=== PATIENT | female | born 1965 | race Caucasian/White ===

== ENCOUNTER → 2023-08-19 08:26 | Outpatient (REF) | payer OTHER, SELFPAY | LOC: HWRAD 08:26 | PROVIDERS: ATTENDING PHYSICIAN Family Medicine | DX: R74.8 Abnormal levels of other serum enzymes (principal) | CPT/HCPCS: 76700 ==

== ENCOUNTER 2024-10-27 20:13 | Emergency (ER) | payer OTHER, SELFPAY ==
[2024-10-27 20:22] VITALS: BP 168/91
[2024-10-27 20:36] LABS: % Basophils 0.6 % (0-2); % Eosinophils 2.8 % (0-6); % Immature Granulocytes 0.2 % (0-0.5); % Lymphocytes 28.8 % (20.5-51.1); % Monocytes 6.9 % (1.7-9.3); % Neutrophils 60.7 % (42.2-75.2); Absolute Eosinophils 0.2 10^3/uL (0-0.7); Absolute Lymphocytes 1.9 10^3/uL (1.2-3.4); Absolute Monocytes 0.4 10^3/uL (0.1-0.6); Absolute Neutrophils 3.9 10^3/uL (1.4-6.5); Hematocrit 41.9 % (37.0-47.0); Hemoglobin 14.8 g/dL (12.0-16.0); Mean Corp Hgb Conc. 35.3 g/dL (33.0-37.0); Mean Corpuscular Hgb 33.6 pg (27.0-31.0); Nucleated Red Blood Cells % 0 %; Platelet Count 182 10^3/uL (130-400); Red Blood Cell Count 4.41 10^6/uL (4.20-5.40); Red Cell Dist. Width 14.3 % (11.5-14.5); White Blood Cell Count 6.4 10^3/uL (4.8-10.8)
[2024-10-27 21:07] LABS: ALT (SGPT) 61 U/L (0-35); AST (SGOT) 54 U/L (14-36); Albumin 4.8 g/dl (3.5-5.0); Alkaline Phosphatase 201 U/L (38-126); Blood Urea Nitrogen 16 mg/dl (7-17); Calcium 10.1 mg/dl (8.4-10.2); Carbon Dioxide 27 mmol/L (22-30); Chloride 108 mmol/L (98-107); Glucose 141 mg/dl (70-99); Potassium 3.9 mmol/L (3.5-5.1); Sodium 142 mmol/L (135-145); Total Bilirubin 0.7 mg/dl (0.2-1.3); Total Protein 7.6 g/dl (6.3-8.2); eGFR > 60.00
[2024-10-27 21:19] LABS: Troponin I < 0.012 ng/ml
[2024-10-27 21:42] VITALS: BP 150/77; BMI 36.7
[2024-10-27 22:42] VITALS: BP 139/64
--- NOTE | 2024-10-27 23:20 | ED.GENMED ---
History of Present Illness
General
Chief Complaint: Cardiac Symptoms
Source: patient and previous hospital records (Cardiac catheterization November 2022-PTCA with stent to the right coronary artery for 95% stenosis midportion. Also note of moderate CAD of the LAD and circumflex.)
Exam Limitations: none
Time Seen by Provider: 10/27/24 22:20
Nursing documentation reviewed up to this point in time: agreed with
History of Present Illness
History of Present Illness:
This is a 59-year-old woman who has history of hypertension, hyperlipidemia, GERD, irritable bowel syndrome, left bundle branch block as well as CAD with history of PTCA with stent to the RCA November 2022. She follows with Dr. Licona. She does note
that her blood pressure has been more elevated recently running 137-145/80.
Tonight she awoke on the couch after a brief nap and was chatting with her daughter on the phone. Shortly after the call ended patient developed a very sharp moderate to severe lower substernal chest pain that was nonradiating, associated with mild
nausea and lasted approximately 30 seconds and then resolved. She remained chest pain-free since then. She denies back pain, no other associated symptoms.
She admits that this episode of chest pain was quite different from the chest pain she experienced prior to PTCA in 2022, at that time patient had been experiencing exertional chest pain associated with fatigue.
She continues to exercise several times per week without symptomatology.
Her daily medications include: Omeprazole, amlodipine, Claritin in the a.m., atorvastatin, metoprolol, Zyrtec, Xanax in the evening.
Past History
Past History
ED Past Medical History: CAD, GERD, HTN, Hypercholesterolemia and Other (Chronic left bundle branch block); Negative IDDM or NIDDM
ED Past Surgical History: Cardiac (PTCA with stent to the RCA November 2022), Gynecological and Tonsilectomy
Social History
Tobacco: Non-smoker
Alcohol: Occasional
Drug: None
Personal:
Living: with family
Employment: Employed
Family History
Family History: Other (Dad and sister with rheumatoid arthritis father with diabetes and bilateral carotid endarterectomies)
Phy Exam
Physical Exam
Physical Exam:
GENERAL: 59-year-old woman appears her stated age, bright and alert, pleasant, appears in no acute distress. is accompanying.
EYE: anicteric
NECK: Supple, nontender, no meningismus, no significant adenopathy.
ENT: oral mucosa is moist. No rhinorrhea.
CARDIAC: Regular rate and rhythm. no murmur. No palpable chest wall tenderness.
LUNGS: Clear breath sounds bilaterally, no acute respiratory distress, no wheezes/rales/rhonchi
ABDOMEN: Rotund, soft, nondistended, very minimal tenderness epigastric region with deep palpation only, no r/g, no cvat. normoactive BS.
NEUROLOGICAL: Alert and oriented x3, no focal neuro deficits.
SKIN: Warm and dry, normal color, skin intact. No rash.
MUSCULOSKELETAL: No C/C/E. peripheral pulses are full and equal b/l. No palpable tenderness.
PSYCH: Normal and appropriate interaction.
Scores
Heart Score for Chest Pain Patients
STEMI patient?: No
History: Slightly or Non-Suspicious
ECG: Normal
Age: >45 - <65 years
Risk Factors: >/= 3 Risk Factors or History of CAD
Troponin: </= Normal Limit
Heart Score for Chest Pain Patients: 3
Heart Score Risk: 2.5% MACE over next 6 weeks
Course
Orders/Labs/Results
Orders:
Orders
10/27/24 20:14
ECG [Electrocardiogram (*1)] Urgent
Reason for Study: Chest Pain
EKG- Treatment ONCE
10/27/24 20:24
Cardiac Monitoring- Treatment ONCE
IV Insert/Care/Rem.- Treatment PRN
O2 Therapy [RESP] Urgent
Titrate/Wean O2 to maintain O2 sat greater than (%): 90
Special Instructions: Maintain sats >/=90%
Pulse Ox/spot Check [RESP] Urgent
Quantity: 1
Special Instructions: ON ROOM AIR
10/27/24 20:30
Complete Blood Count/With Diff Urgent
Comprehensive Metabolic Panel Urgent
Troponin I Urgent
10/27/24 22:42
Troponin I Urgent
Abnormal Lab Results
10/27/24
20:30
MCH 33.6 H pg
(27.0-31.0)
MPV 11.0 H fL
(7.4-10.4)
Chloride 108 H mmol/L
(98-107)
Glucose 141 H mg/dl
(70-99)
AST 54 H U/L
(14-36)
ALT 61 H U/L
(0-35)
Alkaline Phosphatase 201 H U/L
(38-126)
10/27/24 20:30
10/27/24 20:30
Vital Signs
Initial and Last Documented VS:
Initial Vital Signs
Temp Pulse Resp BP Pulse Ox
97.6 F 84 19 168/91 97
10/27/24 20:22 10/27/24 20:22 10/27/24 20:22 10/27/24 20:22 10/27/24 20:22
Last Documented Vital Signs
Temp Pulse Resp BP Pulse Ox
97.6 F 72 16 139/64 98
10/27/24 20:22 10/27/24 22:42 10/27/24 22:42 10/27/24 22:42 10/27/24 22:42
MDM/Problems Addressed
Differential Diagnosis Includes:
Fleeting sharp lower substernal chest pain lasting 30 seconds associated with mild nausea without return is overall not consistent with ACS/angina. I suspect an element of GERD, other consideration could be biliary colic however less likely due to
brevity of discomfort.
She remains hemodynamically stable, no associated back pain and again with brevity of discomfort, dissection is unlikely as well.
EKG shows normal sinus rhythm, left bundle branch block, similar and unchanged from previous.
Labs thus far show mildly elevated LFTs but overall similar and unchanged from previous. Troponin is negative.
Will plan to repeat troponin now.
Initial BP elevated at 168/90, has improved to 139/64 without intervention.
Chronic conditions affecting care: HTN, CAD and Other (GERD, hyperlipidemia)
*Pulse Oximetry
Patient hypoxic: no
*EKG
Interpreted by ED Provider?: Yes
Comparison EKG: no changes (Unchanged from previous 2022)
Rate: normal
Rhythm: sinus
[place]: left axis deviation
Interval: normal QT interval and normal CT interval
QRS Pattern: left bundle branch block
Ischemia: no ischemia
*Ice Cream Chef Interpretation
Rate: normal
Interpretation: normal
Rhythm: sinus
*Critical Care Note
Total Time (30-74mins, 75-104mins- exclusive of procedures): Not Applicable
Update Note
Update Note:
23:35
Repeat troponin remains negative.
Patient remains chest pain-free and comfortable.
With repeat ported to home blood pressure somewhat elevated high 130s to 140s systolic recommend increasing metoprolol succinate from 25 to 50 mg daily. Continue amlodipine 5 mg daily.
Continue to monitor blood pressure at home with plan for prompt follow-up with lead game designer, Dr. Licona as well as follow-up with PCP.
Return precautions discussed.
ED Attending Note
-
Portions of this chart may have been created with voice recognition software.� Occasional wrong word or��sound alike� substitutions may have occurred due to the inherent limitations of voice recognition software.
Discharge Plan
Departure
Patient Disposition: Home (Routine Discharge)
Date of Disposition: 10/27/24
Time of Disposition: 23:41
Patient with high blood pressure during this ER visit?: No
Condition: Good
Discharge Problem:
Nonspecific chest pain, Essential hypertension
Instructions: Low-sodium diet, Chest Pain DCA Follow Up
Prescriptions:
New
metoprolol succinate 50 mg tablet extended release 24 hr
50 mg PO DAILY Qty: 60 0RF
No Action
ibuprofen 600 MG tablet
600 mg PO Q6HPRN PRN (Reason: pain)
Multivitamin
1 tab PO HS
metoprolol succinate [Toprol XL] 25 mg tablet extended release 24 hr
12.5 mg PO DAILY Qty: 10 0RF
escitalopram oxalate 10 mg Tablet
10 mg PO HS
atorvastatin 40 mg Tablet
40 mg PO DAILY
aspirin 81 mg Tablet,Chewable
81 mg PO DAILY
loratadine [Claritin] 10 mg Tablet
10 mg PO DAILY
alprazolam 0.25 mg Tablet
0.25 mg PO BID PRN (Reason: anxiety )
Zyrtec 10 mg Capsule
10 mg PO HS
clopidogrel 75 mg Tablet
75 mg PO DAILY Qty: 90 3RF
pantoprazole 40 mg Tablet,Delayed Release (Dr/Ec)
40 mg PO DAILY Qty: 90 3RF
amlodipine 5 mg tablet
5 mg PO DAILY Qty: 30 0RF
Referrals:
Shanae Alejandre DO [Family Provider, Family Practice] - Call in 1-3 days for appt
Activity Restrictions/Additional Instructions:
Increase your dose of metoprolol succinate from 25 to 50 mg daily.
Continue all other medications as prescribed, including daily omeprazole.
Follow-up with your lead game designer, Dr. Licona for recheck and blood pressure recheck.
Alternatively you can follow-up with your primary care physician for BP recheck.
Interventions
Interventions:
*Risk Screen - Suicide Last Done: 10/27/24 20:22
*Neglect/Abuse Screening Last Done: 10/27/24 20:22
ED- Pulmonary Assessment Last Done: 10/27/24 21:42
ED- Cardiac Assessment Last Done: 10/27/24 21:42
Discharge Date and Time
Print Language: ARMENIAN
[2024-10-27 23:24] LABS: Troponin I < 0.012 ng/ml
[2024-10-27 23:59] VITALS: BP 137/66
== END 2024-10-28 | disposition home or self-care (01) ==
LOC: EMR 20:13
PROVIDERS: Emergency Medicine; EMERGENCY PHYSICIAN Emergency Medicine; FAMILY PHYSICIAN Family Medicine
DX: R07.9 Chest pain, unspecified (principal); I10 Essential (primary) hypertension; E78.00 Pure hypercholesterolemia, unspecified; I44.7 Left bundle-branch block, unspecified; I25.10 Atherosclerotic heart disease of native coronary artery without angina pectoris; Z79.899 Other long term (current) drug therapy; Z95.5 Presence of coronary angioplasty implant and graft
CPT/HCPCS: 99284; 80053; 84484; 85025; 93005